=== PATIENT | female | born 1995 | race African-American/Black ===

== ENCOUNTER 2024-05-02 11:30 | Emergency (ER) | payer SELFPAY ==
--- NOTE | ~2024-05-02 | US_ITS ---
EXAMINATION: US OB <= 14 weeks fetus DATE: 05/02/2024 19:11 MERCHANDISING SPECIALIST INDICATION: Spotting COMPARISON: 12/22/2023 TECHNIQUE: Real-time transabdominal obstetric ultrasound. FINDINGS: 2 para 0 Estimated date of delivery by last menstrual period is 12/12/2024 The uterus 10 x 5.6 x 7.8 cm. A gestational sac is identified within the uterus. A pole is identified, with a crown-rump length that measures 1.8 cm, corresponding to an approx imate gestational age of 8 weeks and 2 days. cardiac activity is identified at a rate of 161 bpm. The right ovary measures 3.4 x 2.8 x 1.1 cm. The left ovary measures 4.3 x 1.9 x 1.9 cm. Estimated date of delivery by ultrasound is 12/09/2024 IMPRESSION: Single intrauterine gestation with an approximate gestational age of 8 weeks and 2 days, with c ardiac activity identified. Reviewed, dictated and finalized at location A. HANDISING SPECIALIST IMPRESSION: Single intrauterine gestation with an approximate gestational age of 8 weeks an d 2 days, with cardiac activity identified.
[2024-05-02 12:24] VITALS: BP 164/100; PULSE 84; RESP 18; TEMP 36.8; O2SAT 100
--- NOTE | 2024-05-02 14:21 | ED_ITS ---
HPI - Nausea/Vomiting/Diarrhea General Chief complaint: Nausea/Vomiting/Diarrhea <Madina Sanchez PA-C - Last Filed: 05/02/24 14:51> Stated complaint: N/V dizziness , LMP 03/07/24 <Madina Sanchez PA-C - Last Filed: 05/02/24 14:51> Time Seen by Provider: 05/02/24 14:22 <JAMAAL Hsieh Last Filed: 05/02/24 14:51> Focused HPI: patient is a 28-year-old female who presents the ED via EMS with report of dizziness and headache. Patient reports she has had a diffuse headache, worse throughout her right-sided head, described as a burning sensation, for the last 4 days. Has been taking ibuprofen w/o relief. No hx of migraines. Reports blurry vision bilaterally, dizziness, N/V, photophobia/phonophobia. States the dizziness was more severe today which prompted her to contact EMS. Reports congestion/rhinorrhea, denies cough. Denies fever. Patient also reports having a positive test on 04/09/24. This would make patient (hx of miscarriage). Will be seeing Dr. Moura with OBGYN. Reports vaginal spotting intermittently over the past couple weeks with intermittent lower abd pain. GENERAL: Well-appearing, obese with BMI of 38.3, and in no acute distress. HEAD: Normocephalic, atraumatic. EYES: PERRL/EOMI CHEST: Clear to auscultation. ?No respiratory distress. HEART: Regular rate and rhythm.? NEURO: ?Alert and oriented x3. Patient screened in triage and initial orders placed.? ?Additional care and disposition to be based upon?diagnostic testing and treatment. <JAMAAL Hsieh Last Filed: 05/02/24 14:51> Source: patient <JAMAAL Hsieh Last Filed: 05/02/24 14:51> Limitations: no limitations <JAMAAL Hsieh Last Filed: 05/02/24 14:51> History of Present Illness HPI Narrative: I agree with the assessment and documentation of Madina Sanchez PA-C. <Jonna Johnson, HOLLY - Last Filed: 05/02/24 20:00> Related Data Allergies/Adverse reactions: Allergies Allergy/AdvReac Type Severity Reaction Status Date / Time No Known Allergies Allergy Verified 05/02/24 17:13 <Madina Sanchez PA-C - Last Filed: 05/02/24 14:51> Review of Systems 2 Review of Systems: All systems reviewed & are unremarkable except as noted in HPI and below <Jonna Johnson, HOLLY - Last Filed: 05/02/24 20:00> Exam 2 Narrative: GENERAL: Well appearing, well-nourished, non-toxic, in no acute distress. HEAD: Normocephalic, atraumatic. NECK: Supple. No adenopathy, no masses. RESPIRATORY: Airway patent, respirations nonlabored. Clear to auscultation bilaterally, no rales, rhonchi, wheezing. CARDIOVASCULAR: Regular rate and rhythm without murmurs, rubs, or gallops. Peripheral pulses 2+ and equal bilaterally. ABDOMINAL: Soft, nontender, nondistended, no hepatosplenomegaly. Normoactive BS. MUSCULOSKELETAL: Moves all extremities. Strength/ROM intact without gross deformities. SKIN: Warm, dry, normal color. No rashes. NEURO: A&O X3. Speech clear. Cranial nerves intact. No ataxic movements. PSYCHIATRIC: Appropriate mood and affect. Normal interaction. <Jonna Johnson, HOLLY - Last Filed: 05/02/24 20:00> Course Vital Signs Vital signs: Vital Signs Temperature 36.8 C 05/02/24 12:24 Pulse Rate 84 05/02/24 12:24 Respiratory Rate 18 05/02/24 12:24 Blood Pressure 164/100 H 05/02/24 12:24 Pulse Oximetry 100 05/02/24 12:24 Oxygen Delivery Room Air 05/02/24 12:24 Temperature 36.8 C 05/02/24 12:24 Pulse Rate 84 05/02/24 12:24 Respiratory Rate 18 05/02/24 12:24 Blood Pressure 164/100 H 05/02/24 12:24 Pulse Oximetry 100 05/02/24 12:24 Oxygen Delivery Room Air 05/02/24 12:24 <Madina Sanchez PA-C - Last Filed: 05/02/24 14:51> Vital Signs Temperature 36.8 C 05/02/24 12:24 Pulse Rate 84 05/02/24 12:24 Respiratory Rate 18 05/02/24 12:24 Blood Pressure 164/100 H 05/02/24 12:24 Pulse Oximetry 100 05/02/24 12:24 Oxygen Delivery Room Air 05/02/24 12:24 Temperature 36.8 C 05/02/24 12:24 Pulse Rate 84 05/02/24 12:24 Respiratory Rate 18 05/02/24 12:24 Blood Pressure 164/100 H 05/02/24 12:24 Pulse Oximetry 100 05/02/24 12:24 Oxygen Delivery Room Air 05/02/24 12:24 <Jonna Johnson APRN - Last Filed: 05/02/24 20:00> MDM - Nausea/Vomiting/Diarrhea MDM Narrative Medical decision making narrative: MSE by WILMER in triage. <Madina Sanchez PA-C - Last Filed: 05/02/24 14:51> MSE by WILMER in triage. Patient is a 28-year-old female who presents the ED via EMS with report of dizziness and headache. Patient reports she has had a diffuse headache, worse throughout her right-sided head, described as a burning sensation, for the last 4 days. Has been taking ibuprofen w/o relief. No hx of migraines. Reports blurry vision bilaterally, dizziness, N/V, photophobia/phonophobia. States the dizziness was more severe today which prompted her to contact EMS. Reports congestion/rhinorrhea, denies cough. Denies fever. 1830- At the time of examination pt reports she has had lower abdominal cramping and vaginal bleeding. This was not disclosed during her initial examination by the JAMAAL. Will further place orders for further evaluation at this time. Labs Ordered: CBC, CMP, PTT, INR, UA, beta hCG quant, COVID/flu/RSV swab Imaging Ordered: Ultrasound OB less than 14 weeks Medications Ordered: 1 L normal saline IV bolus, Benadryl IV 25 mg, Reglan 10 mg IV, Tylenol 1000 mg p.o. Results: Pt's OB US indicates Single intrauterine gestation with an approximate gestational age of 8 weeks and 2 days, with cardiac activity identified. Diagnosis: Single intrauterine gestation, high blood pressure Risks: HEART score, PECARN score Consults: None needed, as pt already has an appointment set up with an OBGYN Patient Education/Shared MDM: Results shared with patient. She endorses improvement following medication administration. Patient strongly advised to maintain hydration status upon discharge and follow-up with her OBGYN, as planned. She will be discharged home with no new prescriptions. Strict return precautions provided. Patient verbalized understanding is in agreement with plan. Vital signs stable at time of discharge. All questions answered. <Jonna Johnson APRN - Last Filed: 05/02/24 20:00> Differential Diagnosis Differential diagnosis: Likely gastroenteritis, dehydration and other (hypertension, gestational hypertension, headache) <Jonna Johnson APRN - Last Filed: 05/02/24 20:00> Lab Data Attestation: I reviewed the patient's lab results. <Jonna Johnson APRN - Last Filed: 05/02/24 20:00> Result diagrams: 05/02/24 14:42 05/02/24 14:42 <Madina Sanchez PA-C - Last Filed: 05/02/24 14:51> Labs: Lab Results 05/02/24 05/02/24 Range/Units 14:21 14:42 WBC 8.1 (4.5-10.0) K/mm3 RBC 4.47 (4.2-5.4) M/mm3 Hgb 10.1 L (12.0-15.0) g/dL Hct 34.2 L (37.0-47.0) % MCV 76.5 L (80-100) fl MCH 22.6 L (26-34) pg MCHC 29.5 L (32-36) g/dl RDW 19.4 H (11.5-14.5) % Plt Count 275 (150-375) k/mm3 MPV 10.4 (7.4-10.4) fl Immature Gran % (Auto) 0.4 (0-0.5) % Neut % (Auto) 57.1 (45.5-73.1) % Lymph % (Auto) 29.6 (18.3-44.2) % Barren % (Auto) 7.5 (2.6-8.5) % Eos % (Auto) 4.5 H (0-4.4) % Baso % (Auto) 0.9 (0.2-1.2) % Lymph # (Auto) 2.39 (0.9-3.2) K/mm3 Barren # (Auto) 0.6 (0.1-0.6) K/mm3 Eos # (Auto) 0.4 H (0-0.3) K/mm3 Baso # (Auto) 0.1 (0.0-0.1) K/mm3 Abs Immat Gran (auto) 0.03 (0.00-0.031) K/mm3 Absolute Neuts (auto) 4.6 (1.3-6.7) K/mm3 Absolute Nucleated RBC 0.000 (0.0-0.012) K/mm3 Nucleated RBC % 0.0 (0.0-0.2) % Platelet Estimate Adequate (Adequate) Hypochromasia 1+ Anisocytosis 1+ Ovalocytes 1+ Pomaria Cells 1+ Schistocytes None seen PT 12.6 (11.1-14.7) Seconds INR 0.9 APTT 21.1 L (22.3-36.8) Seconds Sodium 137 (137-145) mmol/L Potassium 4.4 (3.4-5.0) mmol/L Chloride 104 (98-107) mmol/L Carbon Dioxide 22 (22-30) mmol/L Anion Gap 11 (4-12) mmol/L BUN 11 (7-17) mg/dL Creatinine 0.67 L (0.7-1.0) mg/dL Estim Creat Clear Calc 132 ml/min Estimated GFR > 60 (59 - ) Glucose 87 (65-110) mg/dL Calcium 10.4 H (8.4-10.2) mg/dL Total Bilirubin 0.4 (0.2-1.3) mg/dL AST 34 (14-36) U/L ALT 60 H (6-35) U/L Alkaline Phosphatase 66 (38-126) U/L Total Protein 8.0 (6.3-8.2) g/dL Albumin 4.3 (3.5-5.1) g/dL Beta HCG, Quant 99181.00 mIU/ML Urine Color Yellow (Yellow) Urine Appearance Clear (Clear) Urine pH 5.5 (5.0-9.0) Ur Specific [place] 1.027 (1.001-1.035) Urine Protein Negative (Negative) mg/dL Urine Glucose (UA) Negative (Negative) mg/dL Urine Ketones Negative (Negative) mg/dL Ur Blood (Man) Negative (Negative) Urine Nitrate Negative (Negative) Urine Bilirubin Negative (Negative) Urine Urobilinogen 0.2 (<2.0) mg/dL Leukocyte Esterase Rfl Negative (Negative) PATRICIA/UL Influenza A (RT-PCR) Negative (Negative) Influenza B (RT-PCR) Negative (Negative) RSV (RT-PCR) Negative (Negative) SARS-CoV-2 RNA (RT-PCR) Negative (Negative) Blood Type O Positive Antibody Screen Negative Screen Not Reportable Baby's Blood Type Not Reportable Baby's EMANUEL Not Reportable Doses of RhIg Required 0 <Madina Sanchez PA-C - Last Filed: 05/02/24 14:51> Lab Results 05/02/24 05/02/24 Range/Units 14:21 14:42 WBC 8.1 (4.5-10.0) K/mm3 RBC 4.47 (4.2-5.4) M/mm3 Hgb 10.1 L (12.0-15.0) g/dL Hct 34.2 L (37.0-47.0) % MCV 76.5 L (80-100) fl MCH 22.6 L (26-34) pg MCHC 29.5 L (32-36) g/dl RDW 19.4 H (11.5-14.5) % Plt Count 275 (150-375) k/mm3 MPV 10.4 (7.4-10.4) fl Immature Gran % (Auto) 0.4 (0-0.5) % Neut % (Auto) 57.1 (45.5-73.1) % Lymph % (Auto) 29.6 (18.3-44.2) % Barren % (Auto) 7.5 (2.6-8.5) % Eos % (Auto) 4.5 H (0-4.4) % Baso % (Auto) 0.9 (0.2-1.2) % Lymph # (Auto) 2.39 (0.9-3.2) K/mm3 Barren # (Auto) 0.6 (0.1-0.6) K/mm3 Eos # (Auto) 0.4 H (0-0.3) K/mm3 Baso # (Auto) 0.1 (0.0-0.1) K/mm3 Abs Immat Gran (auto) 0.03 (0.00-0.031) K/mm3 Absolute Neuts (auto) 4.6 (1.3-6.7) K/mm3 Absolute Nucleated RBC 0.000 (0.0-0.012) K/mm3 Nucleated RBC % 0.0 (0.0-0.2) % Platelet Estimate Adequate (Adequate) Hypochromasia 1+ Anisocytosis 1+ Ovalocytes 1+ Pomaria Cells 1+ Schistocytes None seen PT 12.6 (11.1-14.7) Seconds INR 0.9 APTT 21.1 L (22.3-36.8) Seconds Sodium 137 (137-145) mmol/L Potassium 4.4 (3.4-5.0) mmol/L Chloride 104 (98-107) mmol/L Carbon Dioxide 22 (22-30) mmol/L Anion Gap 11 (4-12) mmol/L BUN 11 (7-17) mg/dL Creatinine 0.67 L (0.7-1.0) mg/dL Estim Creat Clear Calc 132 ml/min Estimated GFR > 60 (59 - ) Glucose 87 (65-110) mg/dL Calcium 10.4 H (8.4-10.2) mg/dL Total Bilirubin 0.4 (0.2-1.3) mg/dL AST 34 (14-36) U/L ALT 60 H (6-35) U/L Alkaline Phosphatase 66 (38-126) U/L Total Protein 8.0 (6.3-8.2) g/dL Albumin 4.3 (3.5-5.1) g/dL Beta HCG, Quant 14562.00 mIU/ML Urine Color Yellow (Yellow) Urine Appearance Clear (Clear) Urine pH 5.5 (5.0-9.0) Ur Specific [place] 1.027 (1.001-1.035) Urine Protein Negative (Negative) mg/dL Urine Glucose (UA) Negative (Negative) mg/dL Urine Ketones Negative (Negative) mg/dL Ur Blood (Man) Negative (Negative) Urine Nitrate Negative (Negative) Urine Bilirubin Negative (Negative) Urine Urobilinogen 0.2 (<2.0) mg/dL Leukocyte Esterase Rfl Negative (Negative) PATRICIA/UL Influenza A (RT-PCR) Negative (Negative) Influenza B (RT-PCR) Negative (Negative) RSV (RT-PCR) Negative (Negative) SARS-CoV-2 RNA (RT-PCR) Negative (Negative) Blood Type O Positive Antibody Screen Negative Screen Not Reportable Baby's Blood Type Not Reportable Baby's EMANUEL Not Reportable Doses of RhIg Required 0 <Jonna Johnson APRN - Last Filed: 05/02/24 20:00> Imaging Data Attestation: I personally reviewed and interpreted this imaging study as follows: < Jonna Johnson APRN - Last Filed: 05/02/24 20:00> Radiologist's impression: Impressions Ultrasound 05/02/24 19:11 IMPRESSION: Single intrauterine gestation with an approximate gestational age of 8 weeks and 2 days, with cardiac activity identified. <Jonna Johnson APRN - Last Filed: 05/02/24 20:00> Discharge Plan Discharge Clinical Impression: Headache, Hypertension affecting in first trimester, Threatened <JAMAAL Hsieh Last Filed: 05/02/24 14:51> Patient Disposition: Home, Self-Care <Madina Sanchez PA-C - Last Filed: 05/02/24 14:51> Condition: Stable <JAMAAL Hsieh Last Filed: 05/02/24 14:51> Instructions: Antibiotic Form, Threatened Miscarriage (ED), Hypertension (ED), at 7 to 10 Weeks (ED) <JAMAAL Hsieh Last Filed: 05/02/24 14:51> Additional Instructions: Please return to the ER with an worsening symptoms. Follow-up with OBGYN as soon as possible, as planned. Please drink lots of water to maintain hydration. <JAMAAL Hsieh Last Filed: 05/02/24 14:51> Patient Language: Gambian <Madina Sanchez PA-C - Last Filed: 05/02/24 14:51> Follow-up/Referrals: PHYSICIAN NOT ON STAFF,NONSTAFF [Non-Staff] - <Madina Sanchez PA-C - Last Filed: 05/02/24 14:51> Time of Disposition: 19:59 <Madina Sanchez PA-C - Last Filed: 05/02/24 14:51> 19:59 <Jonna Johnson APRN - Last Filed: 05/02/24 20:00>
[2024-05-02 14:49] LABS: Basophils Absolute Auto 0.1 K/mm3 (0.0-0.1); Basophils Percent Auto 0.9 % (0.2-1.2); Eosinophils Absolute Auto 0.4 K/mm3 (0-0.3); Eosinophils Percent Auto 4.5 % (0-4.4); Hematocrit 34.2 % (37.0-47.0); Hemoglobin 10.1 g/dL (12.0-15.0); Immature Granulocyte Absolute 0.03 K/mm3 (0.00-0.031); Immature Granulocyte Percent A 0.4 % (0-0.5); Lymphocytes Absolute Auto 2.39 K/mm3 (0.9-3.2); Lymphocytes Percent Auto 29.6 % (18.3-44.2); Mean Corpuscular HGB Conc 29.5 g/dl (32-36); Mean Corpuscular Hemoglobin 22.6 pg (26-34); Mean Corpuscular Volume 76.5 fl (80-100); Mean Platelet Volume 10.4 fl (7.4-10.4); Monocytes Absolute Auto 0.6 K/mm3 (0.1-0.6); Monocytes Percent Auto 7.5 % (2.6-8.5); Neutrophils Absolute Auto 4.6 K/mm3 (1.3-6.7); Neutrophils Percent Auto 57.1 % (45.5-73.1); Platelet Count Result 275 k/mm3 (150-375); Red Blood Count 4.47 M/mm3 (4.2-5.4); Red Cell Distribution Width 19.4 % (11.5-14.5); White Blood Count 8.1 K/mm3 (4.5-10.0)
[2024-05-02 14:50] LABS: Add Urine Microscopic? NO; Appearance Urine Clear (Clear); Bilirubin Urine Negative (Negative); Blood Urine Negative (Negative); Color Urine Yellow (Yellow); Glucose Urine UA Negative (Negative); Ketones Urine Negative (Negative); Leukocyte Esterase Ur Negative LEU/UL (Negative); Nitrate Urine Negative (Negative); Protein Urine Negative (Negative); Specific Grav Ur 1.027 (1.001-1.035); Urobilinogen Urine 0.2 mg/dL (<2.0); pH Urine 5.5 (5.0-9.0)
[2024-05-02 14:58] LABS: Alanine Aminotransferase 60 U/L (6-35); Albumin Level 4.3 g/dL (3.5-5.1); Alkaline Phosphatase 66 U/L (38-126); Anion Gap 11 mmol/L (4-12); Aspartate Amino Transferase 34 U/L (14-36); Bilirubin,Total 0.4 mg/dL (0.2-1.3); Blood Urea Nitrogen 11 mg/dL (7-17); Calcium 10.4 mg/dL (8.4-10.2); Carbon Dioxide 22 mmol/L (22-30); Chloride 104 mmol/L (98-107); Estimated CRCL calculation 132 ml/min; Estimated Glomerular Filt Rate > 60; Glucose 87 mg/dL (65-110); Potassium 4.4 mmol/L (3.4-5.0); Sodium 137 mmol/L (137-145)
[2024-05-02 15:06] LABS: INR 0.9; Prothrombin Time 12.6 Seconds (11.1-14.7)
[2024-05-02 15:07] LABS: Partial Thromboplastin Time 21.1 Seconds (22.3-36.8)
[2024-05-02 15:10] LABS: Anisocytosis 1+; Burr Cells 1+; Hypochromasia 1+; Ovalocytes 1+; Platelet Estimate Adequate (Adequate); Schistocytes None Seen
[2024-05-02 15:11] LABS: Influenza A QL RT-PCR Negative (Negative); Influenza B QL RT-PCR Negative (Negative); RSV RNA, RT-PCR Negative (Negative); SARS-CoV-2 RNA PCR Negative (Negative)
[2024-05-02] MEDS: SODIUM CHLORIDE 0.9% IV 1,000 ML 999 ML IV CONT (17:29)
[2024-05-02] MEDS: METOCLOPRAMIDE HCL INJ 10 MG/2 ML VIAL IV PUSH (17:30)
[2024-05-02] MEDS: diphenhydrAMINE HCl INJ 50 MG/ML VIAL 25 MG IV PUSH (17:31)
[2024-05-02] MEDS: ACETAMINOPHEN 500 MG TABLET 1000 MG PO (17:31)
[2024-05-02] MEDS: Please add drug allergy info to patient profile. 1 EACH XX (17:31)
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
--- OUTSIDE RECORDS SUMMARY | 2024-05-02 17:46 | XMS_ITS | Referral Summary ---
Author Organization [facility] [employer] Address [address] [place] [address] Care Team Providers Care Oyster Bed Worker Name Role Phone Unavailable Primary Care Provider Unavailabl e Source Comments [facility] [employer],non-owned Affiliates and Associated Physician Practices is amultiple site organization consisting of ambulatory clinics and hospital sitesin [place], [place], [place] and [place]. This disclosure is being madepursuant to the Care Everywhere program and may not contain all information available regarding this patient. Last updated 17.[facility] [employer] Allergies No known active allergies Medications * [...] and heating? Not hard at all 06/19/2022 [facility] [place] [facility] Occupat ional Health - Occupational Stress [...] place to sleep or slept in a care home (including now)? No 06/19/2022 Sex and Gender [...] Mass Index 36.02 08/10/2022 2:44 PM CDT Functional Status Functional Status Response Date of Assess ment Is person deaf or have serious hearing difficult y? No 06/19/2022 Is person blind or have serious difficulty seein g? No 06/19/2022 Does person have serious dif ficulty walking/climbing stairs? No 06/19/2022 Does person have difficulty dressing/bathing? No 06/19/2022 Does person have difficulty doing errands alone? No 06/19/2022 Cognitive Status Response Date of Assessm ent Does person have difficulty concentrating/remembering/making decisions? No 06/19/2022 Plan of Treatment Not on file Medical Devices Implanted Type Area Service Attendant Cafeteria Device Identifier Shelf Expiration Date Model / Serial / Lot Radial Column Pin Plate Implanted:Qty: 1 on 06/20/2022 by Shakir Franco MD at [facility] Left: Hand [employer] RCP3 / / Dorsal Ulnar Pin Plate Implanted:Qty: 1 on 06/20/2022 by Shakir Franco MD at [facility] Left: Hand [employer] DUP3 / / Screw 1.5mm 9mm T4 Slf-Tap Slf Rtn Strdr Implanted:Qty: 1 on 06/20/2022 by Shakir Franco MD at [facility] Left: Hand [employer] Usa [id number] / / Cortex Screw 1.5mm X 11mm Implanted:Qty: 1 on 06/20/2022 by Shakir Franco MD at [facility] Left: Hand [employer]s Trauma [id number] / / Cortical Screw 2.3x20 Mm Implanted:Qty: 1 on 06/20/2022 by Shakir Franco MD at [facility] Right: Wrist Synthes Trauma TRX2.3-20 / / Cortical Screw 2.3x24 Mm Implanted:Qty: 2 on 06/20/2022 by Shakir Franco MD at [facility] Right: Wrist Synthes Trauma TRX2.3-24 / / Cortical Screw 2.3x12 Mm Implanted:Qty: 1 on 06/20/2022 by Shakir Franco MD at [facility] Right: Wrist [employer]ynthes Trauma TRX2.3-12 / / Advance Directives * Full Code (Latest Code Status on File) Date Activated Date Inactivated Comments 06/15/2022 6:38 PM 06/23/2022 6:45 PM * Full Code Date Activated Date Inactivated Comments 07/02/2014 2:34 PM 07/03/2014 11:34 AM
--- OUTSIDE RECORDS SUMMARY | 2024-05-02 17:46 | XMS_ITS | Patient Health Summary ---
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 electronically signed by SASCHA DEVRIES MD on 09/16/2014 2:06 PM . Narrative 09/16/2014 2:06 PM CDT EXAMINATION: PX ELBOW RIGHT 3+ VW DATE: 09/15/2014 8:14 PM HISTORY: pain COMPARISON: No prior study is available for comparison. FINDINGS: The osseous structures are intact and well aligned without acute fracture or dislocation. The joint spaces are preserved. No joint effusion is seen. Bone density and texture are normal. No soft tissue swelling is present. Procedure Note Sascha Devries MD - 06/19/2017 EXAMINATION: PX ELBOW RIGHT 3+ VW DATE: 09/15/2014 8:14 PM HISTORY: pain COMPARISON: No prior study is available for comparison. FINDINGS: The osseous structures are intact and well aligned without acute fractureor dislocation. The joint spaces are preserved. No joint effusion is seen.Bone density and texture are normal. No soft tissue swelling is present. IMPRESSION IMPRESSION: No acute fracture or dislocation identified. Preliminary findings were reported by Dr. Irwin on 09/16/2014 at 0113hours. Dictated by Surinder Irwin MD (co founder and president). I, Dr. SASCHA DEVRIES MD have personally reviewed and interpreted thisexamination/study. This report was electronically signed by SASCHA DEVRIES MD on 09/16/20142:06 PM . Damian Loredo MD DIAGNOSTIC IMAGING O RDERABLES * CARDIAC RHYTHM STRIP ORDER (07/11/2014 5:41 AM CDT) Only the most recent of2 resultswithin the time period is included. Narrative 07/11/2014 5:41 AM CDT Ordered by an unspecified provider. Scanned Document CARDIAC SERVICES ORD ERABLES * IR DRAIN SOFT TISSUE W CATH (07/09/2014 1:55 PM CDT) Anatomical Region Laterality Modality X-Ray Angiograph y 07/09/2014 5:09 PM CDT Narrative 07/09/2014 5:19 PM CDT History: Patient with a history of recent the breast reduction surgery with the left the collection in the submammary plane on the right side. Patient was referred for image guided drainage catheter placement. Operators: Dr. Reanna Kasper, Attending Physician Anesthesia: 1. Local anesthesia - 5 ml of 1 % lidocaine 2. Intravenous Conscious Sedation (Versed one mg and Fentanyl 50 mcg). Start: 1329 Sedation Initiation time: 1330 End time: 1343. Procedure: 1. Limited ultrasound evaluation of right breast. 2. Ultrasound guided placement of 10 Polish APDL in the right submammary collection. Fluoroscopy time: 0.1 minute. Procedure in Detail: The procedure and possible complications were explained to the patient in detail, and informed consent was obtained. The patient was placed in a supine position on the ultrasound table and a limited ultrasound evaluation of right breast. The limited USG evaluation demonstrated the known large collection in the submammary plane. A percutaneous entry site was marked on the skin along the submammary fold. Patient received intravenous conscious sedation with Versed and Fentanyl. Patient?s vital signs were monitored by a qualified radiology nurse throughout the procedure. The marked site and skin around the region was prepped and draped in a sterile fashion. Local anesthesia was provided by the injection with 1% Lidocaine. A co-axial needle system was advanced in stages under real time ultrasound guidance. Upon aspiration, the out-sheath was advanced within the collection. A 0.035 wire was looped and following series of dilatation/exchanges a 10 Polish APDL catheter was advanced. The initial aspirate was dark old hemorrhagic fluid and approximately 525 cc amount of fluid was drained. Appropriate amount of aspirate was sent for necessary laboratory work up. A final imaging showed the catheter in satisfactory position. There is no immediate complication like hemorrhage noted. The patient tolerated the procedure. The patient was transferred to the holding area in stable condition. Impression: Ultrasound guided placement of an 10 Polish APDL catheter in the right submammary collection, as described above. Note: The aspirate serosanguineous fluid and approximately 525 cc amount of fluid was drained. Follow up: The catheter is open for external drainage and record the output. Flush the catheters with 10 cc of saline twice a day. If the output falls below 20 cc/day please schedule for a imaging guided tube-check follow up. ? I Dr. Reanna Kasper performed/was present throughout the procedure and provided the moderate sedation service. Please see nursing flow chart for more details. . Procedure Note Hussein Kasper MD - 07/09/2014 History: Patient with a history of recent the breast reduction surgery with the left the collection in the submammary plane on the right side. Patient was referred for image guided drainage catheter placement. Operators: Dr. Reanna Kasper, Attending Physician Anesthesia: 1. Local anesthesia - 5 ml of 1 % lidocaine 2. Intravenous Conscious Sedation (Versed one mg and Fentanyl 50 mcg). Start: 1329 Sedation Initiation time: 1330 End time: 1343. Procedure: 1. Limited ultrasound evaluation of right breast. 2. Ultrasound guided placement of 10 Polish APDL in the right submammary collection. Fluoroscopy time: 0.1 minute. Procedure in Detail: The procedure and possible complications were explained to the patient in detail, and informed consent was obtained. The patient was placed in a supine position on the ultrasound table and a limited ultrasound evaluation of right breast. The limited USG evaluation demonstrated the known large collection in the submammary plane. A percutaneous entry site was marked on the skin along the submammary fold. Patient received intravenous conscious sedation with Versed and Fentanyl. Patient?s vital signs were monitored by a qualified radiology nurse throughout the procedure. The marked site and skin around the region was prepped and draped in a sterile fashion. Local anesthesia was provided by the injection with 1% Lidocaine. A co-axial needle system was advanced in stages under real time ultrasound guidance. Upon aspiration, the out-sheath was advanced within the collection. A 0.035 wire was looped and following series of dilatation/exchanges a 10 Polish APDL catheter was advanced. The initial aspirate was dark old hemorrhagic fluid and approximately 525 cc amount of fluid was drained. Appropriate amount of aspirate was sent for necessary laboratory work up. A final imaging showed the catheter in satisfactory position. There is no immediate complication like hemorrhage noted. The patient tolerated the procedure. The patient was transferred to the holding area in stable condition. Impression: Ultrasound guided placement of an 10 Polish APDL catheter in the right submammary collection, as described above. Note: The aspirate serosanguineous fluid and approximately 525 cc amount of fluid was drained. Follow up: The catheter is open for external drainage and record the output. Flush the catheters with 10 cc of saline twice a day. If the output falls below 20 cc/day please schedule for a imaging guided tube-check follow up. ? I Dr. Reanna Kasper performed/was present throughout the procedure and provided the moderate sedation service. Please see nursing flow chart for more details. . Susi Lema Darryn [employer] IR ORDERABLE S * US BREAST RIGHT LTD (07/09/2014 9:22 AM CDT) Anatomical Region Laterality Modality Breast Right Ultrasound 07/09/2014 11:3 8 AM CDT Impressions 07/09/2014 11:47 AM CDT There are 2 fluid collections as described above, one of which has more echogenic material than the other and given the history, these most both most likely represent seromas and/or hematomas in evolution. I do not know whether they communicate with each other but this is certainly a possibility. Narrative 07/09/2014 11:47 AM CDT Right breast targeted ultrasound History: Status post reduction mammoplasty. Right breast swelling A targeted right breast ultrasound is performed to evaluate the areas of clinical certain which are present in essence from the 4:00 through 10:00 areas in the breast approximately 10 -12 cm from the nipple. At the 4 to 6:00 position, which is at a site where there is tape over an incision, there is a wider than taller somewhat poorly defined hypoechoic structure with considerable internal echoes measuring at least 9 x 3.3 cm. Given the history, this most likely represents a hematoma in evolution with the echogenic material compatible with bloody debris. At the 6 -10 o'clock position about 12 cm from the nipple, there is another larger primarily cystic fluid collection measuring at least 19.5 x 4.6 CM. It contains considerably fewer internal echoes some of which are mobile but this also is most likely a seroma or hematoma in evolution. I'm unable to tell whether the 2 structures described above communicate with each other but this would certainly be a possibility. Procedure Note Earnest Vicente MD - 07/09/2014 Right breast targeted ultrasound History: Status post reduction mammoplasty. Right breast swelling A targeted right breast ultrasound is performed to evaluate the areas of clinical certain which are present in essence from the 4:00 through 10:00 areas in the breast approximately 10 -12 cm from the nipple. At the 4 to 6:00 position, which is at a site where there is tape over an incision, there is a wider than taller somewhat poorly defined hypoechoic structure with considerable internal echoes measuring at least 9 x 3.3 cm. Given the history, this most likely represents a hematoma in evolution with the echogenic material compatible with bloody debris. At the 6 -10 o'clock position about 12 cm from the nipple, there is another larger primarily cystic fluid collection measuring at least 19.5 x 4.6 CM. It contains considerably fewer internal echoes some of which are mobile but this also is most likely a seroma or hematoma in evolution. I'm unable to tell whether the 2 structures described above communicate with each other but this would certainly be a possibility. IMPRESSION There are 2 fluid collections as described above, one of which has more echogenic material than the other and given the history, these most both most likely represent seromas and/or hematomas in evolution. I do not know whether they communicate with each other but this is certainly a possibility. Hayley Peres MD US ORDERABLES * GROSS + MICRO EXAM (STL) (07/02/2014 11:14 AM CDT) Case Report Surgical Pathology Report Case: [id number] Authorizing Provider: Hayley Peres MD Collected: 07/02/2014 11:14 AM Ordering Location: [facility] Received: 07/02/2014 01:09 PM Pathologist: Lizabeth Thomason MD Specimens: A) - Breast Reduction, riight breast tissue B) - Breast Reduction, left breast tissue 07/05/2014 2:45 PM CDT [facility] Final Diagnosis 1. Right breast tissue, reduction mammoplasty: -- Hypertrophy of breast, 830 grams -- Dense fibrosis -- Negative for malignancy 2. Left breast tissue, reduction mammoplasty: -- Hypertrophy of breast, 510 grams -- Dense fibrosis -- Negative for malignancy GM/alj 07/05/2014 2:45 PM CDT [facility] Gross Description Received are two containers, each labeled Elvia Hopson. Container 1 is labeled right breast tissue. The container holds multiple fragments skin and breast tissue measuring 20.5 x 19.7 x 7.5 cm in aggregate. The specimen has a total weight of 830 gm. The skin surface is unremarkable. There are no scars or lesions grossly identified. The attached fat is yellow-patel and densely fibrous. There are no lesions or masses grossly identified. [employer] sections are submitted in cassettes A1-A3. Container 2 is labeled left breast tissue. The container holds multiple fragments of skin and breast tissue measuring 20 x 15.5 x 5.5 cm in aggregate. The specimen has a total weight of 510 gm. The skin surface is unremarkable. There are no scars or lesions grossly identified. Sectioning shows a yellow-patel diffusely fibrous cut surface. There are no lesions or masses grossly identified. [employer] sections are submitted in cassettes B1-B3. DYT/rtc 07/05/2014 2:45 PM CDT [facility] Microscopic Description Examination of the right breast tissue reveals skin with no evidence of atypia or malignancy. [employer] sections of breast tissue show dense fibrous stroma within which are scattered breast lobules and ducts that are unremarkable. There is no evidence of atypia or malignancy. Sections from the left breast show similar features. GM/alj 07/05/2014 2:45 PM CDT [facility] Pathology/Cytology SPECIMEN FROM BREAST OBTAINED BY EXCISION / Unknown 07/02/2014 11:14 AM CDT 07/02/2014 1:09 PM CDT Comment:611.1 Miscellaneous samples (specimen) SPECIMEN FROM BREAST OBTAINED BY EXCISION / Unknown 07/02/2014 12:01 PM CDT 07/02/2014 1:09 PM CDT Comment:611.1 Hayley Peres MD LAB - PATHOLOGY /CYTOLOGY ORDERABLES [facility] [address] [place] [address] * HCG URINE QUALITATIVE - POINT OF CARE (IP) (07/02/2014 8:04 AM CDT) HCG Qual Urine Negative Negative [facility] POCT TESTING QC Verified Yes Yes [facility] POC T TESTING Urine specimen (specimen) URINE / Unknown 07/02/2014 8:04 AM CDT Freedom Mathur MD LAB - POINT OF CAR E ORDERABLES [facility] POCT TESTING [address] [phone]
[2024-05-02 20:10] VITALS: BP 145/97; PULSE 97; RESP 16; O2SAT 99
== END 2024-05-02 20:18 | disposition home or self-care (01) ==
PROVIDERS: Emergency Medicine; Physician Assistant; Emergency Provider Registered Nurse
DX: R51.9 Headache, unspecified (principal); O20.0 Threatened abortion; O16.1 Unspecified maternal hypertension, first trimester; Z3A.08 8 weeks gestation of pregnancy
CPT/HCPCS: 36415; 76801; 80053; 81003; 84702; 85025; 85461; 85610; 85730; 86850; 86900; 86901; 87637; 96361; 96372; 96374; 96375; 99284; A9270; J1200; J2765; J7030